=== PATIENT | female | born 1970 | race Caucasian/White ===

== ENCOUNTER 2021-11-19 09:34 | Emergency (ER) | payer SELFPAY ==
[~2021-11-19 09:34] MED LIST: ALBUTEROL2.5 MG/3 M INH; KEFLEX500 MG PO; NEBULIZER UNIT; PREDNISONE20 MG PO
[2021-11-19 11:09] LABS: HEMOGLOBIN 14.9 gm/dl (12.3-15.3); RED BLOOD COUNT 4.58 M/UL (4.00-5.10); WHITE BLOOD COUNT 7.8 K/UL (4.5-11.0)
[2021-11-19 11:31] LABS: BUN/CREATININE RATIO 17 (0-10)
== END 2021-11-19 14:40 | disposition home or self-care (01) ==
LOC: ER1 09:34
PROVIDERS: Physician Assistant
DX: R07.89 Other chest pain (principal); R06.02 Shortness of breath; I10 Essential (primary) hypertension; J44.9 Chronic obstructive pulmonary disease, unspecified; F17.200 Nicotine dependence, unspecified, uncomplicated; Z88.6 Allergy status to analgesic agent; Z88.1 Allergy status to other antibiotic agents; Z88.5 Allergy status to narcotic agent
CPT/HCPCS: 71045; 80053; 82550; 82553; 84484; 85025; 85379; 93005; 94664; 94760; 96374; 99285; J2930